=== PATIENT | male | born 1960 | race Caucasian/White ===

== ENCOUNTER 2021-09-26 09:15 | Emergency (ER) | payer MEDICAID, SELFPAY ==
[2021-09-26 09:26] VITALS: BP 174/99; PULSE 75; RESP 20; TEMP 36.6; O2SAT 98
--- NOTE | 2021-09-26 09:45 | DI.CT_ITS ---
Exam(s) CT ABDOMEN PELVIS WO EXAM: CT ABDOMEN PELVIS WO CLINICAL HISTORY: Left sided abd pain. TECHNIQUE: Imaging Protocol: Axial computed tomography images with coronal and sagittal reformatted images were created and reviewed. Oral: yes, Gastroview COMPARISON: No exams were available for comparison FINDINGS: ABDOMEN: Lung Bases: Normal where visualized. Liver: Severe fatty infiltration areas of fatty sparing inferiorly and adjacent to the gallbladder.. 2 centimeter rounded lesion posterior right lobe. Additional smaller, 1.2 centimeter nodule seen in feriorly. The attenuation is similar to blood in the findings may represent hemangiomas. Gallbladder and biliary tract: No radiodense calculus or dilation. Pancreas: Normal density, no abnormal calcifications or inflammatory process. Spleen: Normal. Kidneys: Normal size, contour and axis. No radiodense stones or obstructive uropathy. No masses seen. Adrenal glands: 1.2 centimeter low-density nodule left adrenal gland consistent with an adenoma. Lymph nodes: Within normal limits. Abdominal Aorta: Abdominal portion non-dilated. Mild atherosclerotic changes. PELVIS: Bladder: Symmetric distention, no gross wall thickening. Bowel: Appendix normal. Moderate quantity of stool. No obstruction or bowel wall thickening. Peritoneal cavity: No ascites, collection or mesenteric inflammatory response. Reproductive organs: Within normal limits. Bones: Within normal limits. IMPRESSION: No acute abnormality. Severe fatty infiltration of the liver with 2 focal rounded densities which may represent hemangiomas . MRI could be performed for further evaluation. RADIATION DOSE DELIVERED: 1,289.66mGy.cm Total DLP DATA REPOSITORY: All CT scans at this facility are submitted to the National Radiology Data Registry (NRDR) Dose Index Registry (DIR) with the [employer] (A[employer]). RADIATION OPTIMIZATION: All CT scans at this facility use at least one of these dose optimization te chniques: automated exposure control; mA and/or kV adjustment per patient size (includes targeted exa ms where dose is matched to clinical indication); or iterative reconstruction.
--- NOTE | 2021-09-26 09:59 | ED.GENADUL_ITS ---
Discharge Plan Disposition Patient Disposition: HOME Condition: Stable Discharge Details Clinical Impression: Abdominal wall strain, Nodule on liver Primary Care Provider: Semaj Brunson ED Provider: Jimmy Pearson Home Meds and New Rx's Prescriptions: Continued tamsulosin 0.4 mg capsule 0.4 cap PO DAILY Label Comments: TAKE ONE CAPSULE BY MOUTH EVERY DAY allopurinol 300 mg tablet 300 tab PO DAILY AM Label Comments: TAKE ONE TABLET BY MOUTH EVERY DAY Discharge Instructions Instructions: Muscle Strain (ED) Additional Instructions: As discussed you may use [id number] lidocaine patches and ibuprofen and recommended 600 mg (3tabs) every 6 hours as needed for pain. Do not take any NSAIDs until after 9:00 this evening due to the pain medication you received in the emergency department. You may take acetaminophen in the meantime but given your elevated liver function please be cautious and do not take more than 2000 mg in a day. It is very important that you follow-up with your primary care provider for reassessment of the CT findings and elevated labs that are related to your liver. If you have any new or significant worsening of symptoms please feel free to return the emergency department immediately for reevaluation. Referrals: Semaj Brunson [Primary Care Provider] - 1 week Discharge Data Discharge Date/Time-TO BE ENTERED AT DEPARTURE: 09/26/21 13:53 Medical Decision Making Patient presenting to the emergency department today for significant left-sided abdominal pain and discomfort. He states his this occurred after sneezing yesterday and has continued to worsen. Does state over the past week or so that he has had abnormal bowel patterns that have been atypical. Patient denies any injury or trauma or any other symptoms. Physical exam shows a obese abdomen with Abdominal rectus diastasis, significant tenderness to palpation of the left upper quadrant of the abdomen and lower ribs along with tenderness to the left lower quadrant. Bowel sounds are normal active and exam is otherwise unremarkable. Given initial onset of the injury caused by sneezing I suspect more of a abdominal wall strain but I do not feel this fully accounts for patient's change and bowel function along with tenderness to the left lower quadrant along with anterior belly pain. Given this we will check standard abdominal labs and CT imaging. Also feel that CT imaging will be beneficial due to obese abdomen and possible subtle hernia that may be present in patient's area pain. Patient denies any need for IV pain medication pending results but we will place a lidocaine patch to see if this helps with symptoms. Review of labs show a unremarkable CBC, CMP shows an elevation of AST and ALT otherwise unremarkable, lipase within normal range, urine does show some trace blood and microscopic RBCs. Patient still pending CT imaging. Review of CT scan and radiology interpretation shows hepatic nodules otherwise no acute findings for area of patient's pain and discomfort. Patient reassessed and states some improvement of discomfort but still having continued pain. Will give patient dose of Toradol. Due to findings of liver nodules and elevated AST and ALT did recommend that patient follows up with primary care provider either he was placed on care management list. Close monitoring of symptoms along with return and follow-up precautions were discussed. After discussion of diagnosis and plan of care patient has no further needs, questions, or concerns and states clear understanding to return to the emergency department for any worsening symptoms. This documentation was generated using [employer] system, please disregard any oddities of phrase or misspellings. Imaging Data Radiologic Study: Imaging: CT Scan Radiologist's impression: FINDINGS: Liver: Fatty infiltration of the liver with areas of focal sparing. Rounded hyperdense nodule in the right hepatic lobe posterior segment measuring 2 x 2 cm. Smaller hyperdense nodule further inferiorly measuring 1.2 x 1.1 cm. Additional workup suggested. Gallbladder and bile ducts: Normal. No calcified stones. No ductal dilation. Pancreas: Normal. No ductal dilation. Spleen: Normal. No splenomegaly. Adrenal glands: Left adrenal nodule measures 1.4 x 1.8 cm, meeting CT criteria for adrenal adenoma. Right adrenal gland unremarkable. Kidneys and ureters: Normal. No hydronephrosis. Stomach and bowel: Unremarkable. No obstruction. No mucosal thickening. Appendix: No evidence of appendicitis. Intraperitoneal space: Unremarkable. No free air. No significant fluid collection. Vasculature: Unremarkable. No abdominal aortic aneurysm. Lymph nodes: Unremarkable. No enlarged lymph nodes. Urinary bladder: Unremarkable as visualized. Reproductive: Unremarkable as visualized. Bones/joints: Unremarkable. No acute fracture. Soft tissues: Unremarkable. IMPRESSION: Fatty infiltration of the liver with areas of focal sparing. Rounded hyperdense nodule in the right hepatic lobe posterior segment measuring 2 x 2 cm. Smaller hyperdense nodule further inferiorly measuring 1.2 x 1.1 cm. Additional workup suggested. Lab Data Lab results reviewed: Yes I reviewed the patient's lab results. HPI General Mode of arrival: ambulatory . Date/Time Provider Initiated Documentation: 09/26/21 09:36 . Limitations to Documentation: no limitations . Information obtained by: patient, family and RN notes reviewed . History of Present Illness 61 year old M presents to the emergency department with the chief complaint of Left-sided abdominal pain, described as moderate, Quality is described as aching and sharp, and is localized to the abdomen and left. Patient reports no radiation. Patient started experiencing this day(s) (1) and it has been constant. No relieving factors improve symptom(s), Other factors that worsen symptoms (Coughing or sneezing) . Patient notes other (Change in bowel pattern). Patient did receive the following treatments prior to arrival, none Related Data Home Medications Medication Instructions Recorded Confirmed allopurinol 300 mg tablet 300 tab PO DAILY AM 09/26/21 09/26/21 tamsulosin 0.4 mg capsule 0.4 cap PO DAILY 09/26/21 09/26/21 Allergies Allergy/AdvReac Type Severity Reaction Status Date / Time No Known Allergies Allergy Unverified 09/26/21 09:30 General Stated Complaint: Abd Prob FARZANEH: 3 Review of Systems Constitutional Constitutional: Denies chills and Denies fever(s) Cardiovascular Cardiovascular: Denies chest pain and Denies dyspnea Respiratory Respiratory: Denies cough and Denies dyspnea Gastrointestinal Gastrointestinal: Reports as per HPI, Reports abdominal pain, Denies melena, Denies hematochezia, Reports change in bowel habits, Reports change in stool character, Denies constipation, Denies diarrhea, Denies nausea and Denies vomiting Genitourinary Genitourinary: Denies hematuria, Denies difficulty urinating, Denies urinary hesitancy, Denies urinary incontinence and Denies urinary urgency Integumentary/Breasts Skin/Breast: Denies rash PFSH All Active Problems (Updated 09/26/21 @ 13:37 by Jimmy Pearson NP) Abdominal wall strain (Acute) Nodule on liver (Acute) Gout (Chronic) BPH (benign prostatic hyperplasia) (Chronic) Medical History Lymphoma Surgical History H/O hernia repair Social History Smoking/Tobacco Use Status: Unknown Smoking risk assessment performed?: Yes Substance use type: unknown Exam Const General: cooperative Orientation: alert, awake and oriented x3 Resp Effort & Inspection: normal respiratory effort and able to speak in complete sentences Auscultation: clear to auscultation bilaterally Cardio Rate: regular rate Rhythm: regular rhythm Heart Sounds: S1 normal and S2 normal GI Inspection: obesity and other (Abdominal rectus diastasis) Palpation: soft, not firm, no guarding, no masses, no pulsatile masses, not rigid and tender in the LLQ and in the LUQ; not at McBurney's point, Martinez's sign negative, psoas sign negative and Rovsing's sign negative Auscultation: normal bowel sounds Back/Spine/Pelvis Back: no CVA tenderness Neuro General: patient alert, patient awake, patient oriented x3, gait normal and moves all extremities Course Vital Signs Vital signs: Vital Signs Temperature 36.6 C 09/26/21 09:26 Pulse 75 09/26/21 09:26 Respiratory Rate 20 09/26/21 09:26 Blood Pressure 174/99 H 09/26/21 09:26 Pulse Oximetry 98 09/26/21 09:26 Temperature 36.6 C 09/26/21 09:26 Temperature Source Temporal Artery Scan 09/26/21 09:26 Pulse 75 09/26/21 09:26 Respiratory Rate 20 09/26/21 09:26 Blood Pressure 174/99 H 09/26/21 09:26 Blood Pressure Position Sitting 09/26/21 09:26 Pulse Oximetry 98 09/26/21 09:26 Oxygen Delivery Method Room Air 09/26/21 09:26 Oxygen Flow Rate 0 09/26/21 09:26 Pain Level 9 09/26/21 09:26
[2021-09-26 10:13] LABS: Bilirubin Negative (Negative); Blood Trace-intact (Negative); Clarity Clear (Clear); Glucose Negative (Negative); Ketones Negative (Negative); Leukocyte Esterase Negative (Negative); Nitrite Negative (Negative); Specific Gravity 1.025 (1.005-1.025); Urobilinogen 0.2 EU/dL (Up TO 0.2); pH 7.5 (5-8)
[2021-09-26 10:26] LABS: WBC 0-2 HPF (0-5)
[2021-09-26 10:27] LABS: Bacteria Rare HPF (Negative); C & S Indicated? No; Casts Negative LPF (Negative); Crystals Negative HPF (Negative); Epithelial Cells Negative HPF (Negative); Mucus Trace (Negative)
[2021-09-26 10:31] LABS: Abs Immature Grans 0.05 10^3/uL (0.0-0.06); Absolute Basophil Count 0.08 10^3/uL (0.0-0.2); Absolute Eosinophil Count 0.28 10^3/uL (0.0-0.7); Absolute Lymphocyte Count 2.27 10^3/uL (1.2-3.4); Absolute Monocyte Count 0.89 10^3/uL (0.1-0.8); Absolute Neutrophil Count 3.62 10^3/uL (1.2-6.7); Basophils % 1.1; Eosinophils % 3.9; HCT 49.8 % (40.0-50.0); Immature Grans % 0.7; Lymphocytes % 31.6; MCH 29.6 pg (27.0-33.0); MCHC 34.1 % (32.0-36.0); MCV 87 fL (80-95); MPV 9.6 fL (8.0-11.0); Monocytes % 12.4; Neutrophils % 50.3; Platelet Count 201 10^3/uL (130-400); RBC 5.75 10^6/uL (4.36-5.78); RDW 12.6 % (11.8-14.1); RDW-SD 39.4 fL; WBC 7.19 10^3/uL (4.4-10.8)
[2021-09-26 10:52] LABS: ALT 101 U/L (16-63); AST 48 U/L (15-37); Albumin 4.4 g/dL (3.4-5.0); Alkaline Phosphatase 59 U/L (46-116); Anion Gap 9.8 mmol/L (3-11); BUN 13 mg/dL (7-18); Bilirubin, Total 0.7 mg/dL (0.2-1.0); CO2 27.2 mmol/L (21.0-32.0); CREATININE 1.2 mg/dL (0.70-1.30); Calcium 9.3 mg/dL (8.5-10.1); Chloride 103 mmol/L (98-107); Glucose 122 mg/dL (74-106); Lipase 222 U/L (73-393); Potassium 4.1 mmol/L (3.5-5.1); Sodium 140 mmol/L (136-145)
[2021-09-26] MEDS: Breeza Beverage 473 ML BTL PO (11:10)
[2021-09-26 12:50] VITALS: BP 183/94; PULSE 70; RESP 16; TEMP 36.2; O2SAT 97
--- NOTE | 2021-09-26 13:16 | DI.VRAD_ITS ---
PROCEDURE INFORMATION: Exam: CT Abdomen And Pelvis Without Contrast Exam date and time: 09/26/2021 12:37 PM Age: 61 years old Clinical indication: Other: Left sided abd pain TECHNIQUE: Imaging protocol: Computed tomography of the abdomen and pelvis without contrast. Radiation optimization: All CT scans at this facility use at least one of these dose optimization techniques: automated exposure control; mA and/or kV adjustment per patient size (includes targeted exams where dose is matched to clinical indication); or iterative reconstruction. Other contrast: Oral, gastroview , 900 ; COMPARISON: No relevant prior studies available. FINDINGS: Liver: Fatty infiltration of the liver with areas of focal sparing. Rounded hyperdense nodule in the right hepatic lobe posterior segment measuring 2 x 2 cm. Smaller hyperdense nodule further inferiorly measuring 1.2 x 1.1 cm. Additional workup suggested. Gallbladder and bile ducts: Normal. No calcified stones. No ductal dilation. Pancreas: Normal. No ductal dilation. Spleen: Normal. No splenomegaly. Adrenal glands: Left adrenal nodule measures 1.4 x 1.8 cm, meeting CT criteria for adrenal adenoma. Right adrenal gland unremarkable. Kidneys and ureters: Normal. No hydronephrosis. Stomach and bowel: Unremarkable. No obstruction. No mucosal thickening. Appendix: No evidence of appendicitis. Intraperitoneal space: Unremarkable. No free air. No significant fluid collection. Vasculature: Unremarkable. No abdominal aortic aneurysm. Lymph nodes: Unremarkable. No enlarged lymph nodes. Urinary bladder: Unremarkable as visualized. Reproductive: Unremarkable as visualized. Bones/joints: Unremarkable. No acute fracture. Soft tissues: Unremarkable. IMPRESSION: Fatty infiltration of the liver with areas of focal sparing. Rounded hyperdense nodule in the right hepatic lobe posterior segment measuring 2 x 2 cm. Smaller hyperdense nodule further inferiorly measuring 1.2 x 1.1 cm. Additional workup suggested. Dictated and Authenticated by: Lucy Hernandez MD. Ordering:BOBBY Marquez MD
[2021-09-26] MEDS: Ketorolac 30 MG/ML VIAL IVP (13:49)
--- NOTE | 2021-09-26 15:46 | NUR.NOTE ---
Nursing Note: referred to CM for PCP followup due to liver nodules
--- NOTE | 2021-09-28 09:43 | CMACTNOTE_ITS ---
- If Service Date Differs Date of service: 09/28/21 Time of Service: 09:43 Care Management Activity Note Michele is seen in the ED on 09/26/21 for abdominal wall strain and a liver nodule. At the request of ED provider, MADONNA contacts Michele's PCP ([facility]) to request a follow up appointment. They will contact Michele directly to schedule the follow up.
== END 2021-09-26 13:53 | disposition home or self-care (01) ==
PROVIDERS: Emergency Provider Nurse Practitioner Family; PCP Physician Assistant Medical
DX: S39.011A Strain of muscle, fascia and tendon of abdomen, initial encounter (principal); X58.XXXA Exposure to other specified factors, initial encounter; K76.89 Other specified diseases of liver
CPT/HCPCS: 36415; 80053; 83690; 96374; 99284; 74176; 81003; 81015; 83735; 85025; J1885; J3490